=== PATIENT | female | born 1980 | race Caucasian/White ===

== ENCOUNTER 2018-08-12 05:30 | Day surgery (SDC) | payer OTHER ==
[~2018-08-12] VITALS: Ht 149.9 cm; Wt 96.2 kg
[2018-08-12 05:57] LABS: CREATININE 0.68 mg/dL (0.55-1.30); POTASSIUM 4.1 mmol/L (3.5-5.1)
[2018-08-12 06:03] LABS: ALBUMIN 3.4 g/dL (3.4-4.8); TOTAL BILIRUBIN 0.2 mg/dL (0.0-1.0)
[2018-08-12] MEDS ORDERED: CEFAZOLIN SOD 1 GM in D5W 50 ML IV ONE (07:00)
[2018-08-12] MEDS ORDERED: NS 50 ML BAG IV ONE (08:00)
[2018-08-12] MEDS ORDERED: ROCURONIUM BROMIDE 10 MG/ML (ZEMURON) IV ONE (08:00)
[2018-08-12] MEDS ORDERED: LR 1,000 ML IV.SOLN IV ONE (08:00)
[2018-08-12] MEDS ORDERED: fentaNYL CITRATE 250 MCG/5 ML AMP IV ONE (08:00)
[2018-08-12] MEDS ORDERED: NS IRRIG SOLN 1000 ML IR ONE (08:00)
[2018-08-12] MEDS ORDERED: PROPOFOL 200MG/ 20ML VIAL (DIPRIVAN) IV ONE (08:00)
[2018-08-12] MEDS ORDERED: MIDAZOLAM HCL 5 MG/5 ML VIAL IVP ONE (08:00)
[2018-08-12] MEDS ORDERED: SEVOFLURANE 15 MIN GAS INH ONE (08:00)
[2018-08-12] MEDS ORDERED: VASOPRESSIN 20 UNITS/ML VIAL IV ONE (08:00)
[2018-08-12] MEDS ORDERED: ONDANSETRON HCL 4 MG/2 ML VIAL IVP ONE (08:00)
[2018-08-12] MEDS ORDERED: SUGAMMADEX SODIUM 200 MG/2 ML VIAL IV ONE (08:00)
[2018-08-12] MEDS ORDERED: KETOROLAC TROMETHAMINE 30 MG VIAL IVP ONE (08:00)
[2018-08-12] MEDS ORDERED: LR 1,000 ML IV SCH (09:39)
[2018-08-12] MEDS ORDERED: ONDANSETRON HCL 4 MG/2 ML VIAL IVP PRN ×2 (09:45→10:15)
[2018-08-12] MEDS ORDERED: MORPHINE 4 MG/ML INJ. SYRINGE IVP PRN ×2 (09:45)
[2018-08-12] MEDS ORDERED: HYDROcodone/ACETAMIN 5-325 MG TAB (NORCO/ VICODIN) PO PRN (10:15)
[2018-08-12] MEDS ORDERED: OXYCODONE/ACETAMINOPHEN 5-325 TABLET PO PRN ×2 (10:15)
[2018-08-12] MEDS: MORPHINE 4 MG/ML INJ. SYRINGE IVP PRN ×2 (11:34→11:49)
[2018-08-12] MEDS ORDERED: ONDANSETRON HCL 4 MG/2 ML VIAL ONE (11:38)
[2018-08-12] MEDS ORDERED: MORPHINE 4 MG/ML INJ. SYRINGE ONE (11:38)
[2018-08-12] MEDS ORDERED: METOCLOPRAMIDE HCL 10 MG/2 ML VIAL IVP ONE (12:30)
[2018-08-12] MEDS ORDERED: DIPHENHYDRAMINE INJ 50 MG/ML VIAL IVP ONE (12:30)
[2018-08-12] MEDS ORDERED: FAMOTIDINE PF 20 MG/2 ML VIAL IVP ONE (12:30)
[2018-08-12] MEDS ORDERED: METOCLOPRAMIDE HCL 10 MG/2 ML VIAL ONE (12:41)
[2018-08-12 12:43] VITALS: BP_SYST 139
[2018-08-12] MEDS ORDERED: SIMETHICONE 80 MG TAB.CHEW PO SCH (13:00)
== END 2018-08-12 14:30 | disposition home or self-care (01) ==
LOC: SMU 05:30 → SDS 05:30
PROVIDERS: ATTEND Specialist
DX: E25.9 Adrenogenital disorder, unspecified (principal); D64.9 Anemia, unspecified; E66.9 Obesity, unspecified; E11.9 Type 2 diabetes mellitus without complications; Z98.890 Other specified postprocedural states; Z79.899 Other long term (current) drug therapy; Z79.84 Long term (current) use of oral hypoglycemic drugs; I10 Essential (primary) hypertension; E66.01 Morbid (severe) obesity due to excess calories; J45.909 Unspecified asthma, uncomplicated
CPT/HCPCS: 36415; 58545; 71045; 80053; 84703; 86886; 86900; 86901; 88305; 93005; C9399; J0690; J1885; J2250; J2270; J2405; J2704; J2765; J3010; J3490; J7060; J7120; E0190